=== PATIENT | female | born 1990 | race African-American/Black ===

== ENCOUNTER 2024-11-28 14:20 | Inpatient (IN) | payer BC, OTHER ==
[2024-11-28] MEDS ORDERED: Bupivacaine 0.25% HCL 30 ML VIAL ONE (18:31)
[2024-11-28] MEDS ORDERED: Lidocaine 1% (PF) 30 ML VIAL SC PRN (18:38)
[2024-11-28] MEDS ORDERED: Docusate 100 MG CAP PO PRN (18:38)
[2024-11-28] MEDS ORDERED: Diphenoxylate HCl/Atropine Tablet PO PRN ×2 (18:38)
[2024-11-28] MEDS ORDERED: Promethazine HCl 25 MG/ML VIAL IM PRN (18:38)
[2024-11-28] MEDS ORDERED: Tranexamic Acid 1,000 MG/10 ML VIAL IVP PRN (18:38)
[2024-11-28] MEDS ORDERED: Misoprostol 200 MCG TAB PR PRN (18:38)
[2024-11-28] MEDS ORDERED: Acetaminophen 500 MG TAB PO PRN (18:38)
[2024-11-28] MEDS ORDERED: Carboprost 250 MCG/ML AMP IM PRN (18:38)
[2024-11-28] MEDS ORDERED: fentaNYL 50 mcg/mL 1 mL Vial SLOW IVP PRN (18:38)
[2024-11-28] MEDS ORDERED: Ondansetron PF 4 MG/2 ML Vial IVP PRN (18:38)
[2024-11-28] MEDS ORDERED: Methylergonovine 0.2 MG/ML VIAL IM PRN (18:38)
[2024-11-28] MEDS ORDERED: Lactated Ringer's 1,000 ML IV SCH (18:45)
[2024-11-28] MEDS ORDERED: Oxytocin 30 units/NS 500 ML 500 ML IV SCH ×2 (18:45)
[2024-11-28 18:47] VITALS: BMI 34.0
[2024-11-28] MEDS: Misoprostol 100 MCG TAB VAG SCH (19:36)
[2024-11-28 19:37] LABS: Hematocrit 37.1 % (34.9-44.5); Hemoglobin 12.8 g/dL (12.0-15.5); Mean Corpuscular HGB CONC 34.5 g/dL (32.0-36.0); Mean Corpuscular Hemoglobin 28.9 pg (27.0-33.0); Mean Corpuscular Volume 83.7 fL (81.6-98.3); Mean Platelet Volume 11.1 fL (7.4-10.4); Platelet Count 169 10x3/uL (150-450); Red Blood Cell (RBC) Count 4.43 10x6/uL (3.90-5.03); White Blood Cell (WBC) Count 7.85 10x3/uL (3.5-10.5)
[2024-11-28] MEDS: Penicillin G Potassium 5 MILL.UNITS in Sodium Chloride 0.9% 100 ML IVPB SCH (19:39)
[2024-11-28 20:26] LABS: HIV (1/2) Antibody/Antigen Non-Reactive (NonReactive); HIV 1/2 INDEX 0.14 S/CO (<1.00)
[2024-11-28 20:28] LABS: HBsAg Index 0.14 S/CO (0-0.99); Hep B Surf Ag - L&D Non-Reactive S/CO (NonReactive)
[2024-11-28 20:29] LABS: Syphilis Antibody Nonreactive (Nonreactive); Syphilis Antibody Index 0.37 S/CO (<1.00 Non-Reactive)
[2024-11-29] MEDS: Penicillin G 2.5 MILL.units 2.5 MILL.UNITS in Premix 1 BAG IVPB SCH (01:31)
[2024-11-29] MEDS: Labetalol HCl 200 MG TAB PO SCH ×2 (05:57→16:39)
[2024-11-29] MEDS: fentaNYL/Ropivacaine Epidural 100 ML ONE (09:56)
[2024-11-29] MEDS ORDERED: Moisturizing Cream (Eucerin) 113 GM JAR TOP PRN (10:16)
[2024-11-29] MEDS ORDERED: Naloxone HCl 0.4 mg/ml Vial IVP PRN ×2 (10:16)
[2024-11-29] MEDS ORDERED: ePHEDrine Sulfate 50 MG/10 ML VIAL SLOW IVP PRN (10:16)
[2024-11-29] MEDS ORDERED: diphenhydrAMINE 50 MG/ML VIAL IVP PRN (10:16)
[2024-11-29] MEDS ORDERED: Lactated Ringer's 500 ML IV PRN (10:16)
[2024-11-29] MEDS ORDERED: Ondansetron PF 4 MG/2 ML Vial IVP PRN (10:16)
[2024-11-29] MEDS ORDERED: Promethazine HCl 25 MG/ML VIAL IM PRN (10:16)
[2024-11-29] MEDS ORDERED: Acetaminophen 325 MG TAB PO PRN (10:16)
[2024-11-29] MEDS ORDERED: fentaNYL 2 mcg/Ropivacaine 0.2% Epidural 100 ML CADD EPIDURAL SCH (10:30)
[2024-11-29] MEDS ORDERED: Communication Order-Pharmacy FS SCH (10:30)
[2024-11-29] MEDS: Ibuprofen 800 MG TAB PO PRN (16:19)
[2024-11-29] MEDS: hydrALAZINE 20 MG/ML VIAL SLOW IVP PRN (16:20)
[2024-11-29] MEDS ORDERED: Calcium Gluc 4.6 MEQ/10 ML (100 MG/ML) SLOW IVP PRN (17:03)
[2024-11-29] MEDS ORDERED: Lorazepam 2 MG/ML VIAL SLOW IVP PRN (17:03)
[2024-11-29] MEDS ORDERED: Labetalol HCl 100 MG/20 ML VIAL SLOW IVP PRN ×2 (17:03)
[2024-11-29] MEDS ORDERED: hydrALAZINE 20 MG/ML VIAL SLOW IVP PRN ×3 (17:03→23:33)
[2024-11-29] MEDS: Magnesium Sulfate 20 gm/500 ml 20 GM/500 ML BAG ONE (17:05)
[2024-11-29] MEDS ORDERED: Magnesium Sulfate 20 gm/500 ml 20 GM/500 ML BAG IVPB SCH (17:15)
[2024-11-29 17:19] LABS: ALT (SGPT) 33 U/L (Less than 34); AST (SGOT) 41 U/L (11-34); Alkaline Phosphatase 129 U/L (40-110); Anion Gap 12 mmol/L (10-20); BUN (Urea Nitrogen) 6 mg/dL (7.0-18.7); Bilirubin, Total 1.2 mg/dL (0.3-1.2); Calc. Creatinine Clearance 185 mL/min (70-130); Calcium 9.4 mg/dL (7.8-10.44); Carbon Dioxide 19 mmol/L (22-29); Chloride 112 mmol/L (98-107); Estimated GFR 119; Glucose 98 mg/dL (70-105); Potassium 3.8 mmol/L (3.5-5.1); Sodium 139 mmol/L (136-145)
[2024-11-29 18:09] LABS: #Basophils Less than 0.03 10x3/uL (0.0-0.2); #Eosinophils Less than 0.03 10x3/uL (0.0-0.5); #Monocytes 0.71 10x3/uL (0.0-1.1); #Neutrophils 8.59 10x3/uL (1.5-8.4); %Basophils 0.2 % (0.0-2.0); %Eosinophils 0.1 % (0.0-6.0); %Lymphocytes 10.8 % (18.0-47.0); %Monocytes 6.7 % (0.0-10.0); %Neutrophils 81.5 % (40.0-75.0); Hematocrit 42.5 % (34.9-44.5); Hemoglobin 14.2 g/dL (12.0-15.5); Mean Corpuscular HGB CONC 33.4 g/dL (32.0-36.0); Mean Corpuscular Hemoglobin 28.3 pg (27.0-33.0); Mean Corpuscular Volume 84.7 fL (81.6-98.3); Mean Platelet Volume 11.1 fL (7.4-10.4); Platelet Count 153 10x3/uL (150-450); RBC Distribution Width 13.8 % (11.5-14.5); Red Blood Cell (RBC) Count 5.02 10x6/uL (3.90-5.03); White Blood Cell (WBC) Count 10.54 10x3/uL (3.5-10.5)
[2024-11-29] MEDS ORDERED: Boostrix 0.5 ML (Tdap) VIAL (>/=7 yrs of age) IM ONE (23:33)
[2024-11-29] MEDS ORDERED: Preparation H Ointment 28 GM TUBE PR PRN (23:33)
[2024-11-29] MEDS ORDERED: Bisacodyl 10 MG SUPP PR PRN (23:33)
[2024-11-29] MEDS ORDERED: Lanolin Ointment 7 GM TUBE TOP PRN (23:33)
[2024-11-29] MEDS ORDERED: Milk Of Magnesia 30 ML UDCUP PO PRN (23:33)
[2024-11-29] MEDS ORDERED: Benzocaine-Menthol 82.5 ML CAN TOP PRN (23:33)
[2024-11-30] MEDS: Ferrous Sulfate 325 MG TAB PO SCH ×2 (00:56→08:40)
[2024-11-30] MEDS: Docusate 100 MG CAP PO SCH ×2 (00:56→08:40)
[2024-11-30] MEDS: Ibuprofen 800 MG TAB PO SCH (05:02)
[2024-11-30] MEDS: Prenatal Vitamin 1 TAB PO SCH (08:41)
[2024-11-30] MEDS: NIFEdipine XL 60 MG ER.TAB PO SCH (14:28)
[2024-12-01] MEDS: NIFEdipine XL 60 MG ER.TAB PO SCH (09:24)
[2024-12-01 10:59] VITALS: TEMP 98.6
[2024-12-01 14:41] VITALS: BP 138/80
== END 2024-12-01 16:30 | disposition home or self-care (01) | DRG 806 ==
LOC: CSHLD 18:26 → CSHPED 11-30 09:52
PROVIDERS: ADMIT Family Medicine; ATTEND Family Medicine
PROC: 10E0XZZ Delivery of Products of Conception, External Approach (ICD-10-PCS; principal; 2024-11-29)
PROC: 3E0P7VZ Introduction of Hormone into Female Reproductive, Via Natural or Artificial Opening (ICD-10-PCS; 2024-11-29)
PROC: 10907ZC Drainage of Amniotic Fluid, Therapeutic from Products of Conception, Via Natural or Artificial Opening (ICD-10-PCS; 2024-11-29)
DX: O14.14 Severe pre-eclampsia complicating childbirth (principal); O98.32 Other infections with a predominantly sexual mode of transmission complicating childbirth; Z37.0 Single live birth; Z3A.37 37 weeks gestation of pregnancy; A60.00 Herpesviral infection of urogenital system, unspecified; O34.13 Maternal care for benign tumor of corpus uteri, third trimester; D25.9 Leiomyoma of uterus, unspecified; O99.824 Streptococcus B carrier state complicating childbirth; Z79.899 Other long term (current) drug therapy; O76 Abnormality in fetal heart rate and rhythm complicating labor and delivery; O64.0XX0 Obstructed labor due to incomplete rotation of fetal head, not applicable or unspecified; O69.81X0 Labor and delivery complicated by cord around neck, without compression, not applicable or unspecified
CPT/HCPCS: 36415; 51702; 80053; 85025; 85027; 86780; 86850; 86900; 86901; 87340; 87389; J0360; J0665; J2540; J3475